=== PATIENT | female | born 1980 | race Two or more races ===

== ENCOUNTER 2018-07-29 09:46 | Day surgery (SDC) | payer MEDICAID ==
[2018-07-29] MEDS: SOD CHLORIDE 0.9% 1,000 ML IV (10:35)
[2018-07-29] MEDS ORDERED: BUPIVACAINE 0.5% (SDV) 30 ML INJ (12:29)
[2018-07-29] MEDS ORDERED: LIDOCAINE 2% (MDV) 20 ML INJ (12:29)
[2018-07-29] MEDS ORDERED: SUCCINYLCHOLINE CHLORIDE 100 MG/5 ML SYG IV (12:30)
[2018-07-29] MEDS ORDERED: GLYCOPYRROLATE 0.4 MG INJ (12:30)
[2018-07-29] MEDS ORDERED: ROCURONIUM 50 MG INJ (12:30)
[2018-07-29] MEDS ORDERED: NEOSTIGMINE 3 MG/3 ML SYRINGE (12:30)
[2018-07-29] MEDS ORDERED: CEFAZOLIN 1 GM INJ (12:30)
[2018-07-29] MEDS ORDERED: PROPOFOL 20 ML (12:30)
[2018-07-29] MEDS ORDERED: ONDANSETRON 4 MG INJ (12:31)
[2018-07-29] MEDS ORDERED: FENTAnyl 50 MCG/ML VIAL (12:31)
[2018-07-29] MEDS ORDERED: MIDAZOLAM 1 MG/ML 2 ML INJ (12:31)
[2018-07-29] MEDS ORDERED: DEXAMETHASONE 4 MG/ML 5 ML INJ (12:31)
[2018-07-29] MEDS ORDERED: KETOROLAC 30 MG INJ (13:06)
[2018-07-29] MEDS: BUPIVACAINE 0.25% (MPF) 30 ML INJ (13:12)
[2018-07-29] MEDS ORDERED: BACITRACIN/POLYMYXIN 28.35 GM OINT TOP (13:14)
[2018-07-29] MEDS: HYDROCODONE/APAP (5/325) TAB PO (14:22)
== END 2018-07-29 15:42 | disposition home or self-care (01) ==
LOC: SDS 09:46
DX: L72.11 Pilar cyst (principal)
CPT/HCPCS: 14021; 84703; 88307